=== PATIENT | female | born 1945 | race Caucasian/White ===

== ENCOUNTER 2017-11-11 11:56 | Outpatient (CLI) | payer OTHER | END 2017-11-11 18:14 | disposition home or self-care (01) | LOC: EEVIPCON 11:56 → MCT 11:56 | DX: R51 Headache (principal); W19.XXXA Unspecified fall, initial encounter; Y93.89 Activity, other specified; Y92.89 Other specified places as the place of occurrence of the external cause; Y99.8 Other external cause status | CPT/HCPCS: 70450 ==